=== PATIENT | female | born 1985 | race Caucasian/White ===

== ENCOUNTER 2017-02-12 06:43 | Inpatient (IN) | payer BC ==
[~2017-02-12] VITALS: Ht 160 cm; Wt 103.9 kg
--- NOTE | ~2017-02-12 | HP ---
ADMIT: 02/12/2017 RM/LOC: 225 [facility] MR#: [id number] ACC#: [id number] 26[address] [facility] [address] [place] [id number] KELI GAMEZ [address] [place] [address] History and Physical SEX: F AGE: 31 : 1985 DATE OF SERVICE: CHIEF COMPLAINT: Induction of labor. HISTORY OF PRESENT ILLNESS: The patient is a 31-year-old, 3, para 2-0- 0-2, with an intrauterine at 39-1/7th weeks by last menstrual period consistent with an 8-week ultrasound, who presents to Labor and Delivery for induction of labor secondary to chronic hypertension. PAST MEDICAL HISTORY: 1. Chronic hypertension. 2. Obesity. 3. History of preeclampsia in previous pregnancies. PAST SURGICAL HISTORY: Ureteral reimplantation in 1993. FAMILY HISTORY: Maternal grandfather with Hodgeman's disease. Mother with hypertension. Father with seizure disorder. Maternal grandfather with stroke. SOCIAL HISTORY: The patient denies alcohol, tobacco, or illicit drug use. She is , and a [id number] mom. MEDICATIONS: 1. vitamins one tablet p.o. daily. 2. Baby aspirin 81 mg p.o. daily. ALLERGIES: NO KNOWN MEDICAL ALLERGIES. REVIEW OF SYSTEMS: The patient denies vaginal bleeding, loss of fluid, uterine contractions, or decreased movement. OBSTETRIC LABORATORY DATA: Blood type O positive. Antibody screen negative. RPR nonreactive. Rubella immune. HIV negative. Gonorrhea and chlamydia negative. Hepatitis B surface antigen negative. Diabetic screen, 110. Group B strep negative. PHYSICAL EXAMINATION: GENERAL: A well-developed, well-nourished white female, alert and oriented x3, in no acute distress. VITAL SIGNS: Blood pressure is 140s to 150s over 90s, pulse 90s to 110s, oxygen saturation 97% to 98% on room air. HEENT: Head is normocephalic, atraumatic. Pupils are equal and round. Extraocular muscles are intact. NECK: Supple. Trachea midline. Thyroid not palpable. HEART: Regular rate and rhythm. LUNGS: Clear to auscultation bilaterally. ABDOMEN: Soft, nontender, gravid. EXTREMITIES: No clubbing, cyanosis, or edema. NEUROLOGIC: Cranial nerves II through XII grossly intact. Deep tendon ADMIT: 02/12/2017 RM/LOC: 225 [facility] MR#: [id number] [address] [address] KELI GAEMZ [address] [place] [address] History and Physical SEX: F AGE: 31 : 1985 reflexes 2+ noted. PELVIC: Sterile vaginal examination reveals the cervix to be 3 cm to 4 cm dilated, 60% effaced, -2 station. heart tones are in the 140s with 15 x 15 accelerations, moderate long-term variability, and no decelerations. Uterine contractions are noted every 2 to 3 minutes on the monitor after Pitocin was initiated. ASSESSMENT AND PLAN: 1. This is a 31-year-old, 3, para 2-0-0-2, with intrauterine at 39-1/7th weeks by last menstrual period consistent with an 8- week ultrasound, who presents to Labor and Delivery for induction of labor secondary to chronic hypertension. 2. Chronic hypertension. Blood pressures have been in the mild range. There are no signs or symptoms of preeclampsia. 3. Group B strep negative. No prophylaxis will be provided. 4. Fetus is vertex and overall reassuring. Rosa Epperson MD/ julio JOB #: [id number] CC: Rosa Epperson, Attending Physician NO FAMILY PHYSICIAN, Family Physician
--- NOTE | ~2017-02-12 | FD ---
ADMIT: 02/12/2017 RM/LOC: 225 [facility] MR#: [id number] [address] [id number] KELI GAMEZ [address] [place] [address] [place] [address] Final Diagnosis SEX: F AGE: 31 : 1985 ADMISSION DATE: 02/12/2017 DISCHARGE DATE: 02/13/2017 FINAL DIAGNOSES: 1. Status post spontaneous vaginal delivery. 2. Obesity. 3. Chronic hypertension. 4. History of pre-eclampsia in previous pregnancies. PROCEDURE: 1. Spontaneous vaginal delivery. 2. Removal of epidural catheter. Rsoa Epperson MD/ samir JOB #: [id number] CC: Rosa Epperson MD, Attending Physician FAMILY PHYSICIAN, Family Physician
[2017-02-14] MEDS ORDERED: PRENATAL VIT1 TAB PO (19:24)
[2017-02-14] MEDS ORDERED: MOTRIN-DPS800 MG PO (19:24)
[2017-02-14] MEDS ORDERED: TYLENOL #3 DPS1 TAB PO (19:25)
--- NOTE | 2017-02-16 13:00 | OR ---
ADMIT: 02/12/2017 RM/LOC: 225 [facility] MR#: [id number] [address] [address] KELI GAMEZ [address] [facility] [address] Operative/Delivery Room Report SEX: F AGE: 31 : 1985 SURGERY DATE: 02/12/2017 SURGEON: Rosa Epperson MD The patient delivered a viable female by spontaneous vaginal delivery at 1330 hours. The infant was placed on the mother's abdomen, and the cord was doubly clamped and cut. The was handed off to the awaiting nurse. Cord blood was sent. The 's weight was 3920 g. scores were 9 and 9. The placenta then delivered spontaneously intact with a three-vessel cord. Twenty units of Pitocin were infused with intravenous fluids. An examination of the perineum revealed a right labial laceration, which was repaired with 3- 0 Vicryl in the usual fashion with excellent hemostasis. Estimated blood loss for the entire procedure was 200 mL. The patient and infant are in her room in stable condition. The epidural catheter was removed intact without difficulty at the conclusion of the procedure. Rosa Epperson MD/ julio JOB #: [id number] CC: Rosa Epperson, Attending Physician FAMILY PHYSICIAN, Family Physician
== END 2017-02-13 14:15 | disposition home or self-care (01) | DRG 774 ==
LOC: BC 06:43 → 2LDRP 06:43 → BC 06:53 → 2LDRP 02-13 14:15 → BC 02-18 08:00
PROVIDERS: ADMIT Obstetrics & Gynecology
PROC: 0UQMXZZ Repair Vulva, External Approach (ICD-10-PCS; principal; 2017-02-12)
PROC: 3E033VJ Introduction of Other Hormone into Peripheral Vein, Percutaneous Approach (ICD-10-PCS; principal; 2017-02-12)
PROC: 10907ZC Drainage of Amniotic Fluid, Therapeutic from Products of Conception, Via Natural or Artificial Opening (ICD-10-PCS; principal; 2017-02-12)
PROC: 10E0XZZ Delivery of Products of Conception, External Approach (ICD-10-PCS; principal; 2017-02-12)
DX: O10.92 Unspecified pre-existing hypertension complicating childbirth (principal); E66.9 Obesity, unspecified; O99.214 Obesity complicating childbirth; Z68.39 Body mass index [BMI] 39.0-39.9, adult; O70.0 First degree perineal laceration during delivery; Z79.82 Long term (current) use of aspirin; Z82.49 Family history of ischemic heart disease and other diseases of the circulatory system; Z3A.39 39 weeks gestation of pregnancy; Z37.0 Single live birth

== ENCOUNTER 2017-02-15 15:00 | Emergency (ER) | payer BC ==
[~2017-02-15 15:00] MED LIST: MOTRIN-DPS800 MG PO; PRENATAL VIT1 TAB PO; TYLENOL #3 DPS1 TAB PO
--- NOTE | 2017-02-22 08:15 | ER ---
ADMIT: 02/15/2017 RM/LOC: ER [facility] MR#: [id number] [address] [facility] [address] [place] [id number] KELI GAMEZ [address] [place] [address] Emergency Room Report SEX: F AGE: 31 : 1985 DATE: 02/15/2017 HISTORY OF PRESENT ILLNESS: The patient is a 31-year-old, three days post vaginal delivery, presents to emergency room with a fever 101.3. She had chills this morning, body aches. She did say she had some tear when she delivered and there are some sutures in place and was concerned about getting an infection from that side, thus the reason why Dr. Epperson sent her over here. PAST MEDICAL HISTORY: Bladder surgery. She took Motrin and Tylenol. She says that she is not either, so she was concerned that this maybe related to her breasts, but she denies her breasts being swollen or even erythematous. PHYSICAL EXAMINATION: VITAL SIGNS: Blood pressure 159/94, heart rate is 74, respirations 16, temp is 100.6, O2 saturations 98%. GENERAL: She does not seem to be in any acute distress. She is mildly anxious. PELVIS: On pelvic examination, there is active bleeding, but is mild and the repair is intact. BACK: Normal inspection. NECK: Supple. RESPIRATION: Intact and non-distressed. NEURO: Oriented x4. LABORATORY DATA: CBC within normal limits with hemoglobin of 11.8 and hematocrit is 34.0, potassium is 3.6. Flu negative and we also did a UA, which did show wbc's of 57, rbc's of 264, with leukocytes of 3+ and blood 3+. CLINICAL IMPRESSION: 1. Urinary tract infection. 2. Fever. Ultrasound of pelvic negative. She was given a cephalexin for the road since the pharmacy was closed. The patient was advised to follow up with Dr. Epperson. Return if symptoms worsen, hydration, or take antibiotic as prescribed. YOSI Gudino / Terence Valero MD / julio JOB #: [id number] CC: Terence Valero MD, Attending Physician Rosa Epperson MD, Family Physician
== END 2017-02-15 17:52 | disposition home or self-care (01) ==
LOC: ER 15:00
DX: N39.0 Urinary tract infection, site not specified (principal); Z98.890 Other specified postprocedural states; Z79.899 Other long term (current) drug therapy